=== PATIENT | female | born 1980 | race American Indian/Alaskan Native ===

== ENCOUNTER 2017-02-25 10:50 | Emergency (ER) | payer MEDICAID ==
--- NOTE | 2017-02-25 11:46 | Emergency Department Report ---
ED ENT HPI - General Chief complaint: Dental/Oral Stated complaint: TOOTHACHE Time Seen by Provider: 02/25/17 11:41 Source: patient Mode of arrival: Ambulatory Limitations: No Limitations - History of Present Illness Initial comments: PT c/o L upper toothache x 2 weeks PT states her gum started to swell 2 days ago PT states no relief with OTC Tylenol PT states a week ago she took Motrin and it helped some PT states her last Dental visit was last year MD complaint: tooth pain -: Gradual, week(s) Severity: severe Severity scale (0 -10): 10 Consistency: constant Improves with: NSAID Worsens with: eating Associated Symptoms: fever (subjective - felt hot ), gum swelling, toothache - Related Data Previous Rx's Medication Instructions Recorded Last Taken Type Amoxicillin 500 mg PO BID #20 capsule 02/25/17 Unknown Rx Ibuprofen [Motrin] 600 mg PO Q8H PRN #15 tablet 02/25/17 Unknown Rx traMADol [Ultram] 50 mg PO Q6HR PRN #12 tablet 02/25/17 Unknown Rx ED Dental HPI - General Stated complaint: TOOTHACHE Time Seen by Provider: 02/25/17 11:41 - Related Data Previous Rx's Medication Instructions Recorded Last Taken Type Amoxicillin 500 mg PO BID #20 capsule 02/25/17 Unknown Rx Ibuprofen [Motrin] 600 mg PO Q8H PRN #15 tablet 02/25/17 Unknown Rx traMADol [Ultram] 50 mg PO Q6HR PRN #12 tablet 02/25/17 Unknown Rx ED Review of Systems ROS: Stated complaint: TOOTHACHE Other details as noted in HPI Comment: All other systems reviewed and negative Constitutional: fever Gastrointestinal: denies: vomiting Genitourinary: denies: abnormal menses (lmp 02/12/17) Musculoskeletal: denies: back pain Neurological: headache (left sided ) ED Past Medical Hx - Social History Smoking Status: Current Every Day Smoker (07/10 ppd) - Medications Home Medications: Home Medications Medication Instructions Recorded Confirmed Last Taken Type Amoxicillin 500 mg PO BID #20 capsule 02/25/17 Unknown Rx Ibuprofen [Motrin] 600 mg PO Q8H PRN #15 tablet 02/25/17 Unknown Rx traMADol [Ultram] 50 mg PO Q6HR PRN #12 tablet 02/25/17 Unknown Rx ED Physical Exam - General Limitations: No Limitations General appearance: alert, in no apparent distress - Head Head exam: Present: atraumatic, normocephalic, normal inspection - Eye Eye exam: Present: normal appearance. Absent: conjunctival injection - ENT ENT exam: Present: normal orophraynx, mucous membranes moist, normal external ear exam - Expanded ENT Exam Expanded Mouth exam: Present: tongue normal. Absent: drooling, trismus Teeth exam: Present: dental caries (multiple ), gingival enlargement ( generalized, left upper, no palpable abscess ) Throat exam: Positive: normal inspection - Neck Neck exam: Present: normal inspection, full ROM. Absent: tenderness, lymphadenopathy - Respiratory Respiratory exam: Present: normal lung sounds bilaterally. Absent: respiratory distress - Cardiovascular Cardiovascular Exam: Present: regular rate, normal rhythm, normal heart sounds - Extremities Exam Extremities exam: Present: normal inspection, full ROM - Back Exam Back exam: Present: normal inspection, full ROM - Neurological Exam Neurological exam: Present: alert, oriented X3, normal gait - Expanded Neurological Exam Expanded Best Eye Response ([place]): (4) open spontaneously Best Motor Response ([place]): (6) obeys commands Best Verbal Response ([place]): (5) oriented [place] Total: 15 - Psychiatric Psychiatric exam: Present: normal affect, normal mood - Skin Skin exam: Present: warm, dry, intact, normal color ED Course Vital Signs 02/25/17 11:40 Temperature 98.2 F Pulse Rate 80 Respiratory 16 Rate Blood Pressure 130/84 O2 Sat by Pulse 100 Oximetry - Reevaluation(s) Reevaluation #1: 02/25/17 12:00 PT aware of dx and plan of care. PT aware she will need to follow up with Dentist. PT denies having any drug allergies - Pulse Oximetry Interpretation Digit-Finger Initial Pulse Oximetry Readin Actions Taken: none Critical Care Time: No Critical care attestation.: If time is entered above; I have spent that time in minutes in the direct care of this critically ill patient, excluding procedure time. ED Disposition Clinical Impression: Toothache, Dental decay Disposition: DC-01 TO HOME OR SELFCARE Is pt being admited?: No Does the pt Need Aspirin: No Condition: Stable Instructions: Dental Abscess (ED), Dental Caries (ED), Toothache (ED) Additional Instructions: Good oral hygiene No driving or alcohol after taking Ultram Follow up with Dentist in 3-5 days Finish all of your antibiotics. Prescriptions: Amoxicillin 500 mg PO BID #20 capsule Ibuprofen [Motrin] 600 mg PO Q8H PRN #15 tablet PRN Reason: Pain traMADol [Ultram] 50 mg PO Q6HR PRN #12 tablet PRN Reason: Pain Referrals: CAMERON TORRES MD [Staff Physician] - 3-5 Days [facility] [Outside] - 3-5 Days [facility] [Outside] - 3-5 Days [facility] [Outside] - 3-5 Days Forms: Work/School Release Form(ED) Time of Disposition: 12:02
[2017-02-25 11:50] VITALS: BP 130/84
== END 2017-02-25 12:12 | disposition home or self-care (01) ==
LOC: ED 10:50
DX: K02.9 Dental caries, unspecified (principal); F17.200 Nicotine dependence, unspecified, uncomplicated
CPT/HCPCS: 99282

== ENCOUNTER 2022-03-09 16:19 | Emergency (ER) | payer MEDICAID ==
[2022-03-09 19:38] LABS: Mucus,Urine 1+ /HPF
[2022-03-09 19:42] LABS: Color,Urine Yellow (Yellow)
[2022-03-09 19:56] LABS: Alanine Aminotransferase 11 units/L (7-56); BUN/Creatinine Ratio 30; Blood Urea Nitrogen 18 mg/dL (7-17); Calcium 9.7 mg/dL (8.4-10.2); Hemolysis Index 6
[2022-03-09 20:01] LABS: Basophils % (Auto) 0.2 % (0.0-1.8); Eosinophils % (Auto) 0.4 % (0.0-4.3); Hemoglobin 13.7 gm/dl (10.1-14.3); Lymphocytes # (Auto) 1.7 K/mm3 (1.2-5.4); Lymphocytes % (Auto) 12.9 % (13.4-35.0); Mean Corpuscular HGB Conc 34 % (30-34); Mean Corpuscular Volume 94 fl (79-97); Monocytes # (Auto) 0.8 K/mm3 (0.0-0.8); Platelet Count 345 K/mm3 (140-440); Red Blood Count 4.26 M/mm3 (3.65-5.03); Red Cell Distribution Width 14.9 % (13.2-15.2)
[2022-03-09] MEDS ORDERED: ONDANSETRON 4 MG ODT TAB PO ONE (21:01)
[2022-03-09] MEDS ORDERED: IBUPROFEN 600 MG TAB PO ONE (21:01)
[2022-03-09] MEDS ORDERED: oxyCODONE /ACETAMINOPHEN 5-325MG TAB PO ONE (21:01)
[2022-03-09] MEDS ORDERED: CLINDAMYCIN 300 MG CAP PO ONE (21:01)
--- NOTE | 2022-03-09 22:02 | Emergency Department Report ---
ED General Adult HPI - General Chief complaint: Abdominal Pain Stated complaint: ABD PAIN/ABSCESS IN MOUTH Source: EMS Mode of arrival: Ambulatory Limitations: No Limitations - History of Present Illness Initial comments: Patient is a 41-year-old female with a history of chronic iron deficiency anemia who presents to the ED with complaint of persistent left maxillary premolar m olar tooth ache with swollen gums and pain for the last 2 days. Patient states that she has not been able to sleep because of worsening pain. Patient denies dizziness, syncope, chest pain, shortness of breath, cough, sore throat, nasal and sinus congestion, headache, abdominal pain, nausea and vomiting or diarrhea, dysuria, urinary frequency and urgency or lightheadedness. MD Complaint: dental pain; gingivitis -: Gradual, days(s) (2) Location: mouth Radiation: non-radiation Severity scale (0 -10): 7 Quality: aching, sharp Consistency: constant Improves with: none Worsens with: eating Associated Symptoms: denies other symptoms. denies: confusion, cough, diaphoresis, fever/chills, headaches, loss of appetite, malaise, nausea/vomiting, rash, shortness of breath, syncope, other Treatments Prior to Arrival: none - Related Data Previous Rx's Medication Instructions Recorded Last Taken Type Amoxicillin 500 mg PO BID #20 capsule 02/25/17 Unknown Rx Ibuprofen [Motrin] 600 mg PO Q8H PRN #15 tablet 02/25/17 Unknown Rx traMADoL [Ultram] 50 mg PO Q6HR PRN #12 tablet 02/25/17 Unknown Rx Clindamycin [Clindamycin CAP] 300 mg PO Q8H #30 cap 03/09/22 Unknown Rx Ketorolac [Toradol] 10 mg PO Q8H PRN #20 tab 03/09/22 Unknown Rx traMADoL [Ultram] 50 mg PO Q6HR PRN #10 tablet 03/09/22 Unknown Rx Allergies Allergy/AdvReac Type Severity Reaction Status Date / Time No Known Allergies Allergy Verified 03/09/22 16:57 ED Review of Systems ROS: Stated complaint: ABD PAIN/ABSCESS IN MOUTH Other details as noted in HPI Constitutional: denies: chills, fever Eyes: denies: eye pain, eye discharge, vision change ENT: dental pain (left maxillary dental pain; ), other (swollen left maxillary gingival). denies: ear pain, throat pain Respiratory: denies: cough, shortness of breath, wheezing Cardiovascular: denies: chest pain, palpitations Endocrine: no symptoms reported Gastrointestinal: denies: abdominal pain, nausea, vomiting, diarrhea Genitourinary: denies: urgency, dysuria, discharge Musculoskeletal: denies: back pain, joint swelling, arthralgia Skin: denies: rash, lesions Neurological: denies: headache, weakness, paresthesias Psychiatric: denies: anxiety, depression Hematological/Lymphatic: denies: easy bleeding, easy bruising ED Past Medical Hx - Past Medical History Previous Medical History?: Yes Additional medical history: anemia - Surgical History Additional Surgical History: L. hand surgery - Social History Smoking Status: Current Every Day Smoker (07/10 ppd) - Medications Home Medications: Home Medications Medication Instructions Recorded Confirmed Last Taken Type Amoxicillin 500 mg PO BID #20 capsule 02/25/17 Unknown Rx Ibuprofen [Motrin] 600 mg PO Q8H PRN #15 tablet 02/25/17 Unknown Rx traMADoL [Ultram] 50 mg PO Q6HR PRN #12 tablet 02/25/17 Unknown Rx Clindamycin [Clindamycin CAP] 300 mg PO Q8H #30 cap 03/09/22 Unknown Rx Ketorolac [Toradol] 10 mg PO Q8H PRN #20 tab 03/09/22 Unknown Rx traMADoL [Ultram] 50 mg PO Q6HR PRN #10 tablet 03/09/22 Unknown Rx ED Physical Exam - General Limitations: No Limitations General appearance: alert, in no apparent distress - Head Head exam: Present: atraumatic, normocephalic, normal inspection - Eye Eye exam: Present: normal appearance, PERRL, EOMI Pupils: Present: normal accommodation - ENT ENT exam: Present: mucous membranes moist, TM's normal bilaterally, normal external ear exam, other (left maxillary premolar and molar teeth tenderness) - Neck Neck exam: Present: normal inspection, full ROM. Absent: tenderness - Respiratory Respiratory exam: Present: normal lung sounds bilaterally. Absent: respiratory distress, wheezes, rales, rhonchi, stridor, chest wall tenderness, accessory muscle use, decreased breath sounds, prolonged expiratory - Cardiovascular Cardiovascular Exam: Present: regular rate, normal rhythm, normal heart sounds. Absent: systolic murmur, diastolic murmur, rubs, gallop - GI/Abdominal GI/Abdominal exam: Present: soft, normal bowel sounds. Absent: tenderness, guarding, rebound, hyperactive bowel sounds, hypoactive bowel sounds, organomegaly, mass - Extremities Exam Extremities exam: Present: normal inspection, full ROM, normal capillary refill - Back Exam Back exam: Present: normal inspection, full ROM. Absent: tenderness, CVA tenderness (R), CVA tenderness (L), muscle spasm, paraspinal tenderness, vertebral tenderness - Neurological Exam Neurological exam: Present: alert, oriented X3, CN II-XII intact, normal gait, reflexes normal - Psychiatric Psychiatric exam: Present: normal affect, normal mood - Skin Skin exam: Present: warm, dry, intact, normal color. Absent: rash ED Course Vital Signs 03/09/22 16:54 Temperature 98.1 F Pulse Rate 72 Respiratory 14 Rate Blood Pressure 129/84 [Left] O2 Sat by Pulse 99 Oximetry ED Medical Decision Making - Lab Data Result diagrams: 03/09/22 19:19 03/09/22 19:19 - Medical Decision Making This is a 41-year-old female with a history of chronic iron deficiency anemia who presents to the ED with complaint of persistent left maxillary premolar molar tooth ache with swollen gums and pain for the last 2 days. Patient states that she has not been able to sleep because of worsening pain. In the ED, leonid ent is alert and oriented x3 and is not in any distress. Patient is hemodynamically stable. Patient was treated for pain in the ED and was given initial oral antibiotics in the ED. Patient was discharged home on medications for pain and antibiotics and advised to follow-up with her dentist in 7 to 10 days for reevaluation or return to the ED immediately if symptoms get worse. - Differential Diagnosis dental abscess; dental caries, gingivitis Critical care attestation.: If time is entered above; I have spent that time in minutes in the direct care of this critically ill patient, excluding procedure time. ED Disposition Clinical Impression: Dental abscess, Acute gingivitis, Dental caries Disposition: HOME / SELF CARE / HOMELESS Is pt being admited?: No Does the pt Need Aspirin: No Condition: Stable Instructions: Abdominal Pain (ED), Dental Abscess, [id number], Trench Mouth, Dental Extraction, Care After, [id number] Additional Instructions: Take medication with food, drink plenty of fluids, follow-up with your dentist in 7 to 10 days for reevaluation. Return to the ED immediately if symptoms get worse. Prescriptions: Clindamycin [Clindamycin CAP] 300 mg PO Q8H #30 cap Ketorolac [Toradol] 10 mg PO Q8H PRN #20 tab PRN Reason: Pain traMADoL [Ultram] 50 mg PO Q6HR PRN #10 tablet PRN Reason: Pain Referrals: [facility] [Provider Group] - 3-[address] [facility] [Outside] - 3-5 Days Time of Disposition: 22:05 Print Language: SAMI
[2022-03-10 00:02] VITALS: BP 115/73
== END 2022-03-09 23:37 | disposition home or self-care (01) ==
LOC: ED 16:19
DX: K04.7 Periapical abscess without sinus (principal); K05.00 Acute gingivitis, plaque induced; K02.9 Dental caries, unspecified; F17.200 Nicotine dependence, unspecified, uncomplicated
CPT/HCPCS: 36415; 80053; 81001; 83690; 84703; 85025; 99283; J3490; Q0162